=== PATIENT | female | born 1965 | race Caucasian/White ===

== ENCOUNTER 2017-12-03 20:11 | Inpatient (IN) | payer OTHER ==
[2017-12-03] MEDS ORDERED: ACETAMINOPHEN 325 MG TAB PO (22:00)
[2017-12-03] MEDS ORDERED: NACL 0.9% 3 ML SYG IV (22:00)
[2017-12-03] MEDS: HYDROmorphONE 0.5 MG/0.5 ML SYG IV (22:06)
[2017-12-03 22:15] LABS: ADD MAN DIFF? NO
[2017-12-03 22:38] LABS: ALANINE AMINOTRANSFERASE 40 IU/L (13-69); ALBUMIN/GLOBULIN RATIO 1.17; ALKALINE PHOSPHATASE 64 IU/L (42-121); ANION GAP 12 (8-16); ASPARTATE AMINO TRANSFERASE 38 IU/L (15-46); BILIRUBIN,INDIRECT 1.2 mg/dl (0-1.1); BILIRUBIN,TOTAL 1.2 mg/dl (0.2-1.3); BLOOD UREA NITROGEN 13 mg/dl (7-20); CARBON DIOXIDE 26 mmol/L (21-31); CHLORIDE 104 mmol/L (97-110); CREATININE 1.42 mg/dl (0.44-1.00); GLUCOSE 130 mg/dl (70-220); POTASSIUM 4.2 mmol/L (3.5-5.1); SODIUM 138 mmol/L (135-144); TOTAL PROTEIN 7.4 g/dl (6.1-8.1)
[2017-12-03 23:12] LABS: RETICULOCYTE COUNT # 0.106 X10^6 (0.020-0.110); RETICULOCYTE COUNT % 3.1 % (0.5-1.5)
[2017-12-03 23:12] LABS: RETICULOCYTE RBC 3.47
[2017-12-03] MEDS: SOD CHLORIDE 0.9% 1,000 ML IV (23:13)
[2017-12-03 23:14] LABS: BASOPHILS % 0.4 % (0.0-2.0); EOSINOPHILS # 0.1 10^3/ul (0.0-0.5); EOSINOPHILS % 0.7 % (0.0-7.0); HEMATOCRIT 24.4 % (37.0-47.0); HEMOGLOBIN 8.6 g/dl (12.0-16.0); LYMPHOCYTES % 24.1 % (15.0-51.0); MEAN CORPUSCULAR HEMOGLOBIN 23.8 pg (29.0-33.0); MEAN CORPUSCULAR HGB CONC 35.2 g/dl (32.0-37.0); MEAN CORPUSCULAR VOLUME 67.6 fl (82.0-101.0); MEAN PLATELET VOLUME 11.3 fl (7.4-10.4); MONOCYTE # 0.6 10^3/ul (0.3-0.9); MONOCYTES % 7.2 % (0.0-11.0); NEUTROPHIL # 5.5 10^3/ul (1.6-7.5); NEUTROPHILS % 67.4 % (39.0-77.0); PLATELET COUNT 125 10^3/UL (140-415); RED BLOOD COUNT 3.61 10^6/ul (4.20-5.40); RED CELL DISTRIBUTION WIDTH 14.4 % (11.5-14.5)
[2017-12-03 23:14] LABS: WHITE BLOOD COUNT 8.2 10^3/ul (4.8-10.8)
[2017-12-03] MEDS: ENOXAPARIN 30 MG/0.3 ML SYG SC (23:17)
[2017-12-03 23:30] LABS: THYROID STIMULATING HORMONE 0.922 MIU/L (0.465-4.680)
[2017-12-03 23:31] LABS: CREATINE KINASE 314 IU/L (23-200)
[2017-12-04] MEDS: HYDROmorphONE 0.5 MG/0.5 ML SYG IV ×5 (02:29→21:01)
[2017-12-04] MEDS: SOD CHLORIDE 0.9% 1,000 ML IV (05:25)
[2017-12-04 09:15] LABS: ADD UMIC NO; UR ASCORBIC ACID NEGATIVE (NEGATIVE); UR BILIRUBIN (Dip) 1+ mg/dL (NEGATIVE); UR BLOOD (Dip) NEGATIVE (NEGATIVE); UR CLARITY CLEAR (CLEAR); UR COLOR AMBER (YELLOW); UR GLUCOSE (Dip) NEGATIVE (NEGATIVE); UR KETONES (Dip) 1+ mg/dL (NEGATIVE); UR LEUKOCYTE ESTERASE (Dip) NEGATIVE Leu/ul (NEGATIVE); UR NITRITE (Dip) NEGATIVE (NEGATIVE); UR SPECIFIC GRAVITY (Dip) 1.015 (1.003-1.030); UR TOTAL PROTEIN (Dip) NEGATIVE (NEGATIVE); UR UROBILINOGEN (Dip) 1+ mg/dL (NEGATIVE)
[2017-12-04] MEDS: ENOXAPARIN 30 MG/0.3 ML SYG SC (10:07)
[2017-12-04] MEDS: HYDROXYUREA 500 MG CAP PO (10:37)
[2017-12-04] MEDS: SOD CHLORIDE 0.45% 1,000 ML IV ×3 (13:25→21:51)
[2017-12-04 18:26] LABS: SODIUM,URINE RANDOM 92 mmol/L (30-90)
[2017-12-04] MEDS ORDERED: SENNA TAB PO (19:00)
[2017-12-04] MEDS: ARIPIPRAZOLE 10 MG TAB PO (20:55)
[2017-12-04] MEDS: GABAPENTIN 300 MG CAP PO (20:55)
[2017-12-04] MEDS: traZODone 50 MG TAB PO (20:58)
[2017-12-05] MEDS: HYDROmorphONE 0.5 MG/0.5 ML SYG IV ×2 (02:36→06:47)
[2017-12-05] MEDS: SOD CHLORIDE 0.45% 1,000 ML IV ×4 (05:59→23:06)
[2017-12-05 06:16] LABS: ADD MAN DIFF? NO
[2017-12-05 06:20] LABS: BASOPHILS % 0.3 % (0.0-2.0); EOSINOPHILS # 0.2 10^3/ul (0.0-0.5); EOSINOPHILS % 2.8 % (0.0-7.0); HEMATOCRIT 22.3 % (37.0-47.0); HEMOGLOBIN 7.8 g/dl (12.0-16.0); LYMPHOCYTES # 1.8 10^3/ul (0.8-2.9); LYMPHOCYTES % 31.3 % (15.0-51.0); MEAN CORPUSCULAR HEMOGLOBIN 23.9 pg (29.0-33.0); MEAN CORPUSCULAR VOLUME 68.4 fl (82.0-101.0); MEAN PLATELET VOLUME 11.2 fl (7.4-10.4); MONOCYTE # 0.4 10^3/ul (0.3-0.9); NEUTROPHIL # 3.4 10^3/ul (1.6-7.5); NEUTROPHILS % 58.3 % (39.0-77.0); PLATELET COUNT 101 10^3/UL (140-415); RED BLOOD COUNT 3.26 10^6/ul (4.20-5.40); RED CELL DISTRIBUTION WIDTH 14.6 % (11.5-14.5); RETICULOCYTE COUNT # 0.104 X10^6 (0.020-0.110); RETICULOCYTE COUNT % 3.2 % (0.5-1.5); RETICULOCYTE RBC 3.26
[2017-12-05 06:20] LABS: WHITE BLOOD COUNT 5.8 10^3/ul (4.8-10.8)
[2017-12-05 06:46] LABS: POSITIVE DIFF @See below
[2017-12-05 07:01] LABS: MAGNESIUM 1.9 mg/dl (1.7-2.5)
[2017-12-05 07:17] LABS: ANION GAP 10 (8-16); BLOOD UREA NITROGEN 12 mg/dl (7-20); CALCIUM 8.8 mg/dl (8.4-10.2); CARBON DIOXIDE 27 mmol/L (21-31); CHLORIDE 105 mmol/L (97-110); CREATININE 1.29 mg/dl (0.44-1.00); GLUCOSE 106 mg/dl (70-220); PHOSPHORUS 2.9 mg/dl (2.5-4.9); SODIUM 138 mmol/L (135-144)
[2017-12-05] MEDS: DULOXETINE 30 MG CAP DR PO (09:14)
[2017-12-05] MEDS: HYDROXYUREA 500 MG CAP PO (09:14)
[2017-12-05] MEDS: GABAPENTIN 300 MG CAP PO ×3 (09:14→21:12)
[2017-12-05] MEDS: ENOXAPARIN 30 MG/0.3 ML SYG SC (09:14)
[2017-12-05] MEDS: HYDROmorphONE 1 MG/ML SYG IV ×4 (10:55→21:11)
[2017-12-05] MEDS ORDERED: HYDROmorphONE 0.5 MG/0.5 ML SYG IV (13:00)
[2017-12-05] MEDS: ONDANSETRON 4 MG INJ IV (16:49)
[2017-12-05] MEDS: POLYETHYLENE GLYCOL 17 GM PACKET PO (18:55)
[2017-12-05] MEDS: BISACODYL (EC) 5 MG TAB PO (18:55)
[2017-12-05] MEDS: traZODone 50 MG TAB PO (21:12)
[2017-12-05] MEDS: ARIPIPRAZOLE 10 MG TAB PO (21:12)
[2017-12-06] MEDS: HYDROmorphONE 1 MG/ML SYG IV ×4 (04:50→22:00)
[2017-12-06 06:50] LABS: ANION GAP 10 (8-16); BLOOD UREA NITROGEN 9 mg/dl (7-20); CALCIUM 8.8 mg/dl (8.4-10.2); CARBON DIOXIDE 29 mmol/L (21-31); CHLORIDE 103 mmol/L (97-110); CREATININE 1.31 mg/dl (0.44-1.00); GLUCOSE 119 mg/dl (70-220); POTASSIUM 3.8 mmol/L (3.5-5.1); SODIUM 138 mmol/L (135-144)
[2017-12-06 06:52] LABS: MAGNESIUM 1.9 mg/dl (1.7-2.5)
[2017-12-06] MEDS: SOD CHLORIDE 0.45% 1,000 ML IV ×4 (07:30→23:43)
[2017-12-06] MEDS: DULOXETINE 30 MG CAP DR PO (07:54)
[2017-12-06] MEDS: POLYETHYLENE GLYCOL 17 GM PACKET PO (07:54)
[2017-12-06] MEDS: GABAPENTIN 300 MG CAP PO ×3 (07:54→21:48)
[2017-12-06] MEDS: DOCUSATE SODIUM 100 MG CAP PO (07:54)
[2017-12-06] MEDS: ENOXAPARIN 30 MG/0.3 ML SYG SC (08:24)
[2017-12-06] MEDS: HYDROXYUREA 500 MG CAP PO (08:24)
[2017-12-06] MEDS: ARIPIPRAZOLE 10 MG TAB PO (21:48)
[2017-12-06] MEDS: traZODone 50 MG TAB PO (21:49)
[2017-12-07] MEDS: SOD CHLORIDE 0.45% 1,000 ML IV ×2 (04:30→09:36)
[2017-12-07 05:59] LABS: ADD MAN DIFF? NO
[2017-12-07] MEDS: HYDROmorphONE 1 MG/ML SYG IV ×2 (06:08→10:09)
[2017-12-07 06:18] LABS: WHITE BLOOD COUNT 5.2 10^3/ul (4.8-10.8)
[2017-12-07 06:18] LABS: BASOPHILS % 0.4 % (0.0-2.0); EOSINOPHILS # 0.1 10^3/ul (0.0-0.5); EOSINOPHILS % 2.5 % (0.0-7.0); HEMOGLOBIN 7.4 g/dl (12.0-16.0); LYMPHOCYTES # 1.7 10^3/ul (0.8-2.9); LYMPHOCYTES % 32.9 % (15.0-51.0); MEAN CORPUSCULAR HEMOGLOBIN 24.3 pg (29.0-33.0); MEAN CORPUSCULAR HGB CONC 35.2 g/dl (32.0-37.0); MEAN CORPUSCULAR VOLUME 68.9 fl (82.0-101.0); MEAN PLATELET VOLUME 11.7 fl (7.4-10.4); MONOCYTE # 0.3 10^3/ul (0.3-0.9); MONOCYTES % 5.8 % (0.0-11.0); NEUTROPHILS % 57.8 % (39.0-77.0); PLATELET COUNT 111 10^3/UL (140-415); RED BLOOD COUNT 3.05 10^6/ul (4.20-5.40); RED CELL DISTRIBUTION WIDTH 14.6 % (11.5-14.5); RETICULOCYTE COUNT # 0.133 X10^6 (0.020-0.110); RETICULOCYTE COUNT % 4.4 % (0.5-1.5); RETICULOCYTE RBC 3.05
[2017-12-07 06:25] LABS: MAGNESIUM 1.9 mg/dl (1.7-2.5)
[2017-12-07 06:29] LABS: ANION GAP 10 (8-16); BLOOD UREA NITROGEN 8 mg/dl (7-20); CALCIUM 8.5 mg/dl (8.4-10.2); CARBON DIOXIDE 28 mmol/L (21-31); CHLORIDE 106 mmol/L (97-110); CREATININE 1.22 mg/dl (0.44-1.00); GLUCOSE 114 mg/dl (70-220); PHOSPHORUS 2.9 mg/dl (2.5-4.9); POTASSIUM 3.8 mmol/L (3.5-5.1); SODIUM 140 mmol/L (135-144)
[2017-12-07] MEDS: DULOXETINE 30 MG CAP DR PO (09:36)
[2017-12-07] MEDS: GABAPENTIN 300 MG CAP PO ×2 (09:36→13:05)
[2017-12-07] MEDS: HYDROXYUREA 500 MG CAP PO (09:41)
[2017-12-07] MEDS: ENOXAPARIN 30 MG/0.3 ML SYG SC (09:41)
== END 2017-12-07 13:15 | disposition home or self-care (01) | DRG 812 ==
LOC: MS2 20:11
DX: D57.00 Hb-SS disease with crisis, unspecified (principal); N17.9 Acute kidney failure, unspecified; F31.9 Bipolar disorder, unspecified; E66.9 Obesity, unspecified; Z68.38 Body mass index [BMI] 38.0-38.9, adult; G89.29 Other chronic pain; M54.5 Low back pain; I99.8 Other disorder of circulatory system
CPT/HCPCS: 72131; 76775; 80048; 80053; 81003; 82540; 82550; 83036; 83735; 84100; 84155; 84300; 84443; 85025; 85045; 86850; 86900; 86901

== ENCOUNTER 2018-02-02 06:06 | Observation (INO) | payer OTHER ==
[2018-02-02 07:15] LABS: ADD MAN DIFF? NO
[2018-02-02] MEDS: SOD CHLORIDE 0.9% 1,000 ML IV ×5 (07:25→22:38)
[2018-02-02] MEDS: morphine 10 MG INJ IV (07:26)
[2018-02-02 07:39] LABS: ALANINE AMINOTRANSFERASE 29 IU/L (13-69); ALBUMIN 3.9 g/dl (3.3-4.9); ALBUMIN/GLOBULIN RATIO 1.11; ALKALINE PHOSPHATASE 59 IU/L (42-121); ANION GAP 13 (8-16); ASPARTATE AMINO TRANSFERASE 30 IU/L (15-46); BILIRUBIN,INDIRECT 0.9 mg/dl (0-1.1); BILIRUBIN,TOTAL 0.9 mg/dl (0.2-1.3); BLOOD UREA NITROGEN 9 mg/dl (7-20); CALCIUM 9.1 mg/dl (8.4-10.2); CARBON DIOXIDE 26 mmol/L (21-31); CHLORIDE 107 mmol/L (97-110); CREATININE 1.25 mg/dl (0.44-1.00); GLUCOSE 121 mg/dl (70-220); LIPASE 75 U/L (23-300); POTASSIUM 4.2 mmol/L (3.5-5.1); SODIUM 142 mmol/L (135-144); TOTAL PROTEIN 7.4 g/dl (6.1-8.1)
[2018-02-02] MEDS: HYDROmorphONE 0.5 MG/0.5 ML SYG IV (07:53)
[2018-02-02 07:56] LABS: WHITE BLOOD COUNT 6.9 10^3/ul (4.8-10.8)
[2018-02-02 07:56] LABS: BASOPHILS % 0.3 % (0.0-2.0); EOSINOPHILS # 0.2 10^3/ul (0.0-0.5); EOSINOPHILS % 2.9 % (0.0-7.0); HEMATOCRIT 26.2 % (37.0-47.0); HEMOGLOBIN 9.3 g/dl (12.0-16.0); LYMPHOCYTES # 2.4 10^3/ul (0.8-2.9); LYMPHOCYTES % 34.3 % (15.0-51.0); MEAN CORPUSCULAR HEMOGLOBIN 23.7 pg (29.0-33.0); MEAN CORPUSCULAR HGB CONC 35.5 g/dl (32.0-37.0); MEAN CORPUSCULAR VOLUME 66.8 fl (82.0-101.0); MEAN PLATELET VOLUME 10.8 fl (7.4-10.4); MONOCYTE # 0.5 10^3/ul (0.3-0.9); MONOCYTES % 7.8 % (0.0-11.0); NEUTROPHIL # 3.8 10^3/ul (1.6-7.5); NEUTROPHILS % 54.4 % (39.0-77.0); PLATELET COUNT 149 10^3/UL (140-415); RED BLOOD COUNT 3.92 10^6/ul (4.20-5.40); RED CELL DISTRIBUTION WIDTH 14.9 % (11.5-14.5); RETICULOCYTE COUNT # 0.139 X10^6 (0.020-0.110); RETICULOCYTE COUNT % 3.6 % (0.5-1.5); RETICULOCYTE RBC 3.92
[2018-02-02] MEDS: HYDROmorphONE 2 MG/ML SYG IV (08:40)
[2018-02-02] MEDS ORDERED: ACETAMINOPHEN 325 MG TAB PO (09:00)
[2018-02-02] MEDS ORDERED: ONDANSETRON 4 MG INJ IV ×2 (09:00→10:00)
[2018-02-02 09:35] LABS: ADD UMIC NO; UR ASCORBIC ACID 20 mg/dL (NEGATIVE); UR BACTERIA FEW /HPF (NONE SEEN); UR BILIRUBIN (Dip) NEGATIVE (NEGATIVE); UR BLOOD (Dip) NEGATIVE (NEGATIVE); UR CLARITY SLIGHTLY CLOUDY (CLEAR); UR COLOR YELLOW (YELLOW); UR GLUCOSE (Dip) NEGATIVE (NEGATIVE); UR KETONES (Dip) NEGATIVE (NEGATIVE); UR LEUKOCYTE ESTERASE (Dip) NEGATIVE Leu/ul (NEGATIVE); UR NITRITE (Dip) NEGATIVE (NEGATIVE); UR RBC 4 /HPF (0-5); UR SPECIFIC GRAVITY (Dip) 1.011 (1.003-1.030); UR SQUAMOUS EPITHELIAL CELL FEW /HPF (FEW); UR TOTAL PROTEIN (Dip) NEGATIVE (NEGATIVE); UR UROBILINOGEN (Dip) NEGATIVE (NEGATIVE); UR WBC 3 /HPF (0-5)
[2018-02-02] MEDS ORDERED: NACL 0.9% 3 ML SYG IV (10:00)
[2018-02-02] MEDS ORDERED: morphine 2 MG INJ IV (10:00)
[2018-02-02] MEDS: GABAPENTIN 300 MG CAP PO ×2 (12:46→20:44)
[2018-02-02] MEDS: HYDROCODONE/APAP (5/325) TAB PO ×2 (12:47→22:42)
[2018-02-02] MEDS: POLYETHYLENE GLYCOL 17 GM PACKET PO (20:44)
[2018-02-02] MEDS: ARIPIPRAZOLE 10 MG TAB PO (22:37)
[2018-02-03] MEDS: HYDROCODONE/APAP (5/325) TAB PO ×2 (05:36→21:28)
[2018-02-03 05:55] LABS: ADD MAN DIFF? NO
[2018-02-03 06:00] LABS: ABNORMAL IP MESSAGE 1; BASOPHILS % 0.4 % (0.0-2.0); EOSINOPHILS # 0.3 10^3/ul (0.0-0.5); EOSINOPHILS % 2.7 % (0.0-7.0); HEMATOCRIT 19.7 % (37.0-47.0); LYMPHOCYTES # 3.9 10^3/ul (0.8-2.9); LYMPHOCYTES % 34.4 % (15.0-51.0); MEAN CORPUSCULAR HEMOGLOBIN 23.8 pg (29.0-33.0); MEAN CORPUSCULAR VOLUME 67.9 fl (82.0-101.0); MEAN PLATELET VOLUME 10.7 fl (7.4-10.4); MONOCYTE # 0.8 10^3/ul (0.3-0.9); MONOCYTES % 7.4 % (0.0-11.0); NEUTROPHIL # 6.2 10^3/ul (1.6-7.5); NEUTROPHILS % 54.5 % (39.0-77.0); NUCLEATED RED BLOOD CELLS # 0.1 10^3/ul (0.0-0.0); NUCLEATED RED BLOOD CELLS% 0.5 /100WBC (0.0-0.0); PLATELET COUNT 113 10^3/UL (140-415); RED CELL DISTRIBUTION WIDTH 14.6 % (11.5-14.5)
[2018-02-03 06:00] LABS: WHITE BLOOD COUNT 11.4 10^3/ul (4.8-10.8)
[2018-02-03 06:12] LABS: POSITIVE DIFF @See below
[2018-02-03 06:16] LABS: HEMOGLOBIN 6.9 g/dl (12.0-16.0)
[2018-02-03 06:21] LABS: PHOSPHORUS 2.6 mg/dl (2.5-4.9)
[2018-02-03 06:21] LABS: MAGNESIUM 1.8 mg/dl (1.7-2.5)
[2018-02-03 06:22] LABS: ANION GAP 12 (8-16); BLOOD UREA NITROGEN 9 mg/dl (7-20); CALCIUM 8.6 mg/dl (8.4-10.2); CARBON DIOXIDE 26 mmol/L (21-31); CHLORIDE 107 mmol/L (97-110); CREATININE 1.25 mg/dl (0.44-1.00); GLUCOSE 114 mg/dl (70-220); POTASSIUM 3.9 mmol/L (3.5-5.1); SODIUM 141 mmol/L (135-144)
[2018-02-03] MEDS: SOD CHLORIDE 0.9% 1,000 ML IV ×2 (07:19→16:51)
[2018-02-03 07:38] LABS: ANISOCYTOSIS 2+ (0-0); EOSINOPHILS % (M) 1 % (0-7); ERYTHROBLAST% (NRBC) (M) 2 % (0-0); GIANT THROMBO% (M) 4 % (0-0); LYMPHOCYTES #M 2.3 10^3/ul (0.8-2.9); LYMPHOCYTES % (M) 21 % (15-51); MICROCYTOSIS 1+ (0-0); MONOCYTE #M 0.5 10^3/ul (0.3-0.9); MONOCYTES % (M) 5 % (0-11); PLATELET MORPHOLOGY COMMENT @See below; POIKILOCYTOSIS 1+ (0-0); POLYCHROMASIA 1+ (0-0); REACTIVE LYMPHOCYTES #M 0.3 10^3/ul (0.0-0.0); REACTIVE LYMPHOCYTES% (M) 3 % (0-0); SCHISTOCYTES 1+ (0-0); SEGMENTED NEUTROPHILS (M) % 69 % (39-77); SMUDGE%M 10 % (0-0); STOMATOCYTES 1+ (0-0); TARGET CELLS 2+ (0-0)
[2018-02-03] MEDS: GABAPENTIN 300 MG CAP PO ×3 (09:01→20:47)
[2018-02-03] MEDS: POLYETHYLENE GLYCOL 17 GM PACKET PO ×2 (09:02→20:47)
[2018-02-03] MEDS: DULOXETINE 30 MG CAP DR PO (09:02)
[2018-02-03] MEDS: HYDROmorphONE 0.5 MG/0.5 ML SYG IV ×2 (09:26→15:31)
[2018-02-03 11:45] LABS: HEMATOCRIT 20.1 % (37.0-47.0)
[2018-02-03] MEDS: ARIPIPRAZOLE 10 MG TAB PO (20:47)
[2018-02-04] MEDS: SOD CHLORIDE 0.9% 1,000 ML IV ×4 (02:02→23:07)
[2018-02-04 05:37] LABS: ADD MAN DIFF? NO
[2018-02-04 05:42] LABS: WHITE BLOOD COUNT 8.9 10^3/ul (4.8-10.8)
[2018-02-04 05:42] LABS: BASOPHILS % 0.3 % (0.0-2.0); EOSINOPHILS # 0.3 10^3/ul (0.0-0.5); EOSINOPHILS % 3.2 % (0.0-7.0); HEMATOCRIT 20.5 % (37.0-47.0); HEMOGLOBIN 7.3 g/dl (12.0-16.0); LYMPHOCYTES # 2.7 10^3/ul (0.8-2.9); LYMPHOCYTES % 30.2 % (15.0-51.0); MEAN CORPUSCULAR HEMOGLOBIN 24.1 pg (29.0-33.0); MEAN CORPUSCULAR HGB CONC 35.6 g/dl (32.0-37.0); MEAN CORPUSCULAR VOLUME 67.7 fl (82.0-101.0); MEAN PLATELET VOLUME 10.6 fl (7.4-10.4); MONOCYTE # 0.5 10^3/ul (0.3-0.9); MONOCYTES % 5.6 % (0.0-11.0); NEUTROPHIL # 5.3 10^3/ul (1.6-7.5); NEUTROPHILS % 59.9 % (39.0-77.0); NUCLEATED RED BLOOD CELLS% 0.5 /100WBC (0.0-0.0); PLATELET COUNT 104 10^3/UL (140-415); RED BLOOD COUNT 3.03 10^6/ul (4.20-5.40); RED CELL DISTRIBUTION WIDTH 14.8 % (11.5-14.5)
[2018-02-04 06:06] LABS: PHOSPHORUS 2.4 mg/dl (2.5-4.9)
[2018-02-04 06:06] LABS: MAGNESIUM 1.9 mg/dl (1.7-2.5)
[2018-02-04 06:14] LABS: ANION GAP 13 (8-16); BLOOD UREA NITROGEN 7 mg/dl (7-20); CALCIUM 8.9 mg/dl (8.4-10.2); CARBON DIOXIDE 28 mmol/L (21-31); CHLORIDE 106 mmol/L (97-110); GLUCOSE 103 mg/dl (70-220); POTASSIUM 3.9 mmol/L (3.5-5.1); SODIUM 143 mmol/L (135-144)
[2018-02-04] MEDS: POLYETHYLENE GLYCOL 17 GM PACKET PO ×2 (09:00→22:28)
[2018-02-04] MEDS: GABAPENTIN 300 MG CAP PO ×3 (09:44→22:28)
[2018-02-04] MEDS: DULOXETINE 30 MG CAP DR PO (09:44)
[2018-02-04] MEDS: HYDROCODONE/APAP (5/325) TAB PO (15:31)
[2018-02-04] MEDS: HYDROmorphONE 0.5 MG/0.5 ML SYG IV ×2 (17:24→22:31)
[2018-02-04] MEDS: ARIPIPRAZOLE 10 MG TAB PO (22:28)
[2018-02-05 06:13] LABS: ADD MAN DIFF? NO
[2018-02-05 06:18] LABS: BASOPHILS % 0.3 % (0.0-2.0); EOSINOPHILS # 0.2 10^3/ul (0.0-0.5); HEMOGLOBIN 7.1 g/dl (12.0-16.0); LYMPHOCYTES # 2.2 10^3/ul (0.8-2.9); LYMPHOCYTES % 29.6 % (15.0-51.0); MEAN CORPUSCULAR HGB CONC 35.5 g/dl (32.0-37.0); MEAN CORPUSCULAR VOLUME 67.6 fl (82.0-101.0); MEAN PLATELET VOLUME 10.2 fl (7.4-10.4); MONOCYTE # 0.5 10^3/ul (0.3-0.9); NEUTROPHIL # 4.5 10^3/ul (1.6-7.5); NEUTROPHILS % 60.7 % (39.0-77.0); PLATELET COUNT 112 10^3/UL (140-415); RED BLOOD COUNT 2.96 10^6/ul (4.20-5.40); RED CELL DISTRIBUTION WIDTH 15.2 % (11.5-14.5)
[2018-02-05 06:18] LABS: WHITE BLOOD COUNT 7.4 10^3/ul (4.8-10.8)
[2018-02-05 06:51] LABS: ANION GAP 15 (8-16); BLOOD UREA NITROGEN 7 mg/dl (7-20); CALCIUM 8.8 mg/dl (8.4-10.2); CARBON DIOXIDE 26 mmol/L (21-31); CHLORIDE 108 mmol/L (97-110); GLUCOSE 105 mg/dl (70-220); POTASSIUM 3.6 mmol/L (3.5-5.1); SODIUM 145 mmol/L (135-144)
[2018-02-05] MEDS: SOD CHLORIDE 0.9% 1,000 ML IV (07:57)
[2018-02-05] MEDS: DULOXETINE 30 MG CAP DR PO (08:53)
[2018-02-05] MEDS: POLYETHYLENE GLYCOL 17 GM PACKET PO (08:53)
[2018-02-05] MEDS: GABAPENTIN 300 MG CAP PO (08:53)
== END 2018-02-05 14:25 | disposition home or self-care (01) ==
LOC: MS2 08:44 → E/R 06:06 → MS2 11:16
DX: D57.1 Sickle-cell disease without crisis (principal); N17.9 Acute kidney failure, unspecified; F31.9 Bipolar disorder, unspecified; E66.9 Obesity, unspecified; Z68.36 Body mass index [BMI] 36.0-36.9, adult
CPT/HCPCS: 36415; 71045; 80048; 80053; 81001; 81003; 83690; 83735; 84100; 84703; 85014; 85018; 85025; 85045; 96374; 96375; 96376; 99291-25